=== PATIENT | female | born 1980 | race Caucasian/White ===

== ENCOUNTER 2023-08-05 20:51 | Emergency (ER) | payer OTHER, SELFPAY ==
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
[2023-08-05 21:33] VITALS: BP 137/81; PULSE 90; RESP 18; TEMP 37.1; O2SAT 99; BMI 30.5
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
== END 2023-08-05 22:38 | disposition home or self-care (01) ==
PROVIDERS: Emergency Provider Emergency Medicine
DX: S39.92XA Unspecified injury of lower back, initial encounter (principal); S20.219A Contusion of unspecified front wall of thorax, initial encounter; R51.9 Headache, unspecified; R07.89 Other chest pain; V43.52XA Car driver injured in collision with other type car in traffic accident, initial encounter; Y93.9 Activity, unspecified; Y92.410 Unspecified street and highway as the place of occurrence of the external cause; Y99.9 Unspecified external cause status; Z79.899 Other long term (current) drug therapy
CPT/HCPCS: 71046; 99282; 99283